=== PATIENT | male | born 1955 | race Caucasian/White ===

== ENCOUNTER 2018-01-23 09:58 | Emergency (ER) | payer OTHER ==
[~2018-01-23] VITALS: Ht 162.6 cm; Wt 104.5 kg
[2018-01-23] MEDS ORDERED: MEDROL DOSEPAK4 MG PO (12:15)
[2018-01-23 12:28] VITALS: BP 165/102
== END 2018-01-23 12:31 | disposition home or self-care (01) ==
LOC: EME 09:58
DX: M54.41 Lumbago with sciatica, right side (principal); I10 Essential (primary) hypertension; K21.9 Gastro-esophageal reflux disease without esophagitis; F17.200 Nicotine dependence, unspecified, uncomplicated
CPT/HCPCS: 99281; 99283; J1885; J7512